=== PATIENT | male | born 2000 ===

== ENCOUNTER → 2020-11-03 | Outpatient (CLI) | payer OTHER | END | disposition home or self-care (01) | LOC: PPH VACUNA | DX: Z23 Encounter for immunization (principal) ==

== ENCOUNTER 2020-11-24 09:10 | Outpatient (CLI) | payer OTHER | END 2020-11-24 09:15 | disposition home or self-care (01) | LOC: PPH VACUNA 09:10 | DX: Z23 Encounter for immunization (principal) ==

== ENCOUNTER 2021-04-30 08:30 | Outpatient (CLI) | payer OTHER | END 2021-04-30 08:45 | disposition home or self-care (01) | LOC: PPH VACUNA 08:30 | PROVIDERS: ATTEND Emergency Medicine Pediatric Emergency Medicine | DX: Z23 Encounter for immunization (principal) ==